=== PATIENT | female | born 1950 | race Caucasian/White ===

== ENCOUNTER 2016-12-05 08:43 | Emergency (ER) | payer MEDICARE, BC ==
[2016-12-05 09:45] VITALS: BP 133/67
[2016-12-05] MEDS ORDERED: DOXYcycline CAP(*) 100 MG PO ONE (10:16)
--- NOTE | 2016-12-05 10:37 | UC ---
Skin Complaint HPI - HPI Summary HPI Summary: Patient presents s/p tick bite that she removed prior to arrival. She feels the tick was present less than 24 hours, and it was not engorged with blood. She reports localized tenderness of the - History of Current Complaint Chief Complaint: UCSkin Time Seen by Provider: 12/05/16 10:08 Stated Complaint: TICK BITE Hx Obtained From: Patient Onset/Duration: Sudden Onset, Lasting Hours Skin Exposure Onset/Duration: Hours Ago Timing: Constant Onset Severity: Mild Current Severity: Mild Location: Discrete - under left breast Aggravating Factor(s): Nothing, Touch Alleviating Factor(s): Nothing Associated Signs & Symptoms: Positive: Negative Related History: Insect Bite/Sting - Allergy/Home Medications Allergies/Adverse Reactions: Allergies Allergy/AdvReac Type Severity Reaction Status Date / Time Nitrofurantoin Allergy Tachycardia Verified 12/05/16 09:38 [From Macrobid] Home Medications: Home Medications Aspirin [Aspirin 81 MG TAB] 1 tab PO DAILY 12/05/16 [History Confirmed 12/05/16] Digoxin TAB* [Lanoxin TAB*] 1 tab PO DAILY 12/05/16 [History Confirmed 12/05/16] Review of Systems Constitutional: Negative Skin: Other - small red area at location of the tick bite Eyes: Negative ENT: Negative Respiratory: Negative Cardiovascular: Negative Gastrointestinal: Negative Genitourinary: Negative Motor: Negative Neurovascular: Negative Musculoskeletal: Negative Neurological: Negative Psychological: Negative All Other Systems Reviewed And Are Negative: Yes PMH/Surg Hx/FS Hx/Imm Hx Previously Healthy: Yes - Surgical History Surgical History: Yes Surgery Procedure, Year, and Place: x 3. tonsils - Family History Known Family History: Positive: None - Social History Occupation: Employed Full-time Lives: Alone Alcohol Use: Weekly Substance Use Type: None Smoking Status (MU): Former Smoker When Did the Patient Quit Smoking/Using Tobacco: 8-10 years ago - Immunization History Most Recent Influenza Vaccination: 5 ft 4 in Most Recent Tetanus Shot: 128 lbs Physical Exam Triage Information Reviewed: Yes Appearance: Well-Appearing Vital Signs: Initial Vital Signs Temp 98.4 F 12/05/16 09:39 Pulse 50 12/05/16 09:39 Resp 16 12/05/16 09:39 BP 133/67 12/05/16 09:39 Pulse Ox 100 12/05/16 09:39 Vital Signs Reviewed: Yes Eye Exam: Normal ENT Exam: Normal Dental Exam: Normal Neck exam: Normal Neck: Positive: 1 Respiratory Exam: Normal Cardiovascular Exam: Normal Abdominal Exam: Normal Musculoskeletal Exam: Normal Neurological Exam: Normal Skin Exam: Other - 1 cm circular area under right breat, without erythma migrans. Course/Dx - Course Course Of Treatment: Patient presents s/p tick bite with no evidence of lymes disease based on cc/hpi and clinical findings. She did have a localized reacation at the site, and was treated prophylaxically with doxy 200 mg x 1 dose. I did discuss with her that if she develop at fever, sweats, joint pain or rashes to seek immediate medical assistance. - Differential Diagnoses - Skin Complaint Differential Diagnoses: Other - tick bite - Diagnoses Provider Diagnoses: tick bite Discharge - Discharge Plan Condition: Stable Disposition: HOME Patient Education Materials: Tick Bite (ED) Referrals: Sanjay CERVANTES,Dony Nuñez [Primary Care Provider] - Additional Instructions: If you develop rashes, joit pain, fever or sweats please seek immediate medical attention.
== END 2016-12-05 10:33 | disposition home or self-care (01) ==
LOC: UCEAST 08:43
DX: T14.8XXA Other injury of unspecified body region, initial encounter (principal); W57.XXXA Bitten or stung by nonvenomous insect and other nonvenomous arthropods, initial encounter; Y92.9 Unspecified place or not applicable; Z87.891 Personal history of nicotine dependence
CPT/HCPCS: 99202; A9270-GY; G0463

== ENCOUNTER 2018-06-12 10:39 | Emergency (ER) | payer MEDICARE ==
[2018-06-12 10:54] VITALS: BP 114/65
--- NOTE | 2018-06-12 10:56 | UC ---
Lower Extremity/Ankle HPI - HPI Summary HPI Summary: 67 yo female presents with LEFT ankle pain. She tells me that last night she accidentally hit her left ankle with the car door and has had pain ever since. Pain is worse with weight bearing and with inversion/eversion. She applied some ice and elevated and felt better. Has not taken anything OTC for her symptoms. - History of Current Complaint Chief Complaint: UCLowerExtremity Stated Complaint: ANKLE INJURY Time Seen by Provider: 06/12/18 10:56 Hx Obtained From: Patient Onset/Duration: Sudden Onset Severity Initially: Moderate Severity Currently: Moderate Pain Intensity: 7 Pain Scale Used: 0-10 Numeric Aggravating Factor(s): Standing, Ambulation Alleviating Factor(s): Rest, Elevation - Allergies/Home Medications Allergies/Adverse Reactions: Allergies Allergy/AdvReac Type Severity Reaction Status Date / Time nitrofurantoin Allergy Tachycardia Verified 06/12/18 10:55 [From Macrobid] PMH/Surg Hx/FS Hx/Imm Hx Cardiovascular History: Cardiac Disease - Surgical History Surgical History: Yes Surgery Procedure, Year, and Place: x 3. tonsils - Family History Known Family History: Positive: None - Social History Lives: With Family Alcohol Use: Occasionally Substance Use Type: None Smoking Status (MU): Former Smoker When Did the Patient Quit Smoking/Using Tobacco: 8-10 years ago - Immunization History Most Recent Influenza Vaccination: 5 ft 4 in Most Recent Tetanus Shot: 128 lbs Review of Systems All Other Systems Reviewed And Are Negative: Yes Constitutional: Positive: Negative Skin: Positive: Negative Respiratory: Positive: Negative Cardiovascular: Positive: Negative Neurovascular: Positive: Negative Musculoskeletal: Positive: Other: - Left ankle pain Neurological: Positive: Negative Psychological: Positive: Negative Physical Exam - Summary Physical Exam Summary: GENERAL: NAD. WDWN. No pain distress. SKIN: No rashes, sores, lesions, or open wounds. CHEST: No accessory muscle use. Breathing comfortably and in no distress. CV: Pulses intact PT and DP. Cap refill <2seconds MSK: LEFT ANKLE: Mild TTP at medial malleolus with pain during inversion and eversion, but not dorsiflexion or plantar flexion. Strength 5/5. No edema or obvious bony deformities. No ecchymosis. Negative talar tilt. No increased laxity. NEURO: Alert. Sensations intact and symmetric B/L LEs PSYCH: Age appropriate behavior. Triage Information Reviewed: Yes Vital Signs: Initial Vital Signs Temp 98.2 F 06/12/18 10:50 Pulse 63 06/12/18 10:50 Resp 18 06/12/18 10:50 BP 114/65 06/12/18 10:50 Pulse Ox 98 06/12/18 10:50 Vital Signs Reviewed: Yes Lower Extremity Course/Dx - Course Course Of Treatment: XR: IMPRESSION: Soft tissue swelling without evidence of fracture. Suspect ankle contusion Pt was placed in an GISELA wrap, gel ankle splint and advised to RICE and use the crutches that she has at home. F/u with [facility] if symptoms persist. - Differential Dx/Diagnosis Provider Diagnosis: Ankle contusion Discharge - Sign-Out/Discharge Documenting (check all that apply): Patient Departure All imaging exams completed and their final reports reviewed: Yes - Discharge Plan Condition: Stable Disposition: HOME Patient Education Materials: Contusion in Adults (ED) Referrals: Sanjay CERVANTES,Dony Nuñez [Primary Care Provider] - [facility] [Provider Group] - If Needed Additional Instructions: If you develop a fever, shortness of breath, chest pain, new or worsening symptoms - please call your PCP or go to the ED. 1) Your ankle X-Ray was normal today. 2) Please rest, ice, and elevate your ankle as much as possible. 3) Use the gel ankle splint and crutches for support and pain relief 4) If your symptoms do not improve in 5-7 days, please call [facility] at the number below to schedule an appointment for a recheck - Billing Disposition and Condition Condition: STABLE Disposition: Home
== END 2018-06-12 11:40 | disposition home or self-care (01) ==
LOC: UCEAST 10:39
DX: S90.02XA Contusion of left ankle, initial encounter (principal); W22.8XXA Striking against or struck by other objects, initial encounter; Y92.810 Car as the place of occurrence of the external cause; I51.9 Heart disease, unspecified; Z88.1 Allergy status to other antibiotic agents; Z87.891 Personal history of nicotine dependence
CPT/HCPCS: 99212; G0463

== ENCOUNTER 2018-10-31 06:27 | Day surgery (SDC) | payer MEDICARE ==
[2018-10-31] MEDS ORDERED: Midazolam* 1 MG/ML 2 ML VIAL (2 MG) ONE (07:45)
[2018-10-31 08:57] VITALS: BP 123/72
--- NOTE | 2018-10-31 09:02 | OP ---
DATE OF OPERATION: 10/31/18 [facility] DATE OF : 52 SURGEON: Yvon Casarez M.D. PREOPERATIVE DIAGNOSIS: Cataract, left. POSTOPERATIVE DIAGNOSIS: Cataract, left. OPERATIVE PROCEDURE: Extracapsular cataract extraction with IOL, intraocular lens implant left eye. DESCRIPTION OF PROCEDURE: The patient was brought to the operating room after being given 1/2% Alcaine with epinephrine drops in the preoperative area. The eye was prepped and draped in the usual sterile fashion. Sterile drape and eyelid speculum were placed. Again, topical 1/2% Alcaine with epinephrine was given. A paracentesis incision was made at the 3 o'clock position with the No.75 blade. Clear cornea incision 2.2 x 2.2-mm was created at the 6 o'clock position starting at the anterior limbus using the 2.2-mm keratome. The anterior chamber was irrigated with 0.4 mL of 1% non-preservative intracameral lidocaine and filled with DisCoVisc. A capsulorrhexis was completed using the cystotome and the Utrata forceps. Hydrodissection was performed with balanced salt solution. The lens nucleus was removed with the Phacoemulsification handpiece without incident. Cortex was removed with the irrigation-aspiration handpiece. The capsular bag was re-inflated using DisCoVisc and an [id number] implant was inserted with the shooter. The irrigation-aspiration handpiece was used to remove all residual DisCoVisc. The eye was refilled with balanced salt solution and the wound checked and found to be watertight. Topical Maxitrol drops were given. [id number]/[facility] #: [id number] [facility] [place] [facility]
[2018-10-31] MEDS ORDERED: Proparacaine 0.5% OPHTH.SOL* 15 ML BTL ONE (12:21)
[2018-10-31] MEDS ORDERED: Lidocaine 2% w/ EPI 1:200,000* 20 ML SDV VIAL ONE (12:21)
[2018-10-31] MEDS ORDERED: Lidocaine 1% MPF ** 5 ML VIAL ONE (12:21)
[2018-10-31] MEDS ORDERED: Cyclopentolate 1% OPTH.SOL* 2 ML BTL ONE (12:21)
[2018-10-31] MEDS ORDERED: Neomycin/Polymy/Dex OPTH.SUSP* MAXITROL 0.1% 5 ML ONE (12:21)
[2018-10-31] MEDS ORDERED: acetaZOLAMIDE TAB* 250 MG ONE (12:21)
[2018-10-31] MEDS ORDERED: Povidone Iodine 5% OPTH* 30 ML BTL ONE (12:21)
[2018-10-31] MEDS ORDERED: Ketorolac 0.5% OPHTH (NF) 0.5 % 5 ML BTL ONE (12:21)
[2018-10-31] MEDS ORDERED: Phenylephrine OPHTH SOL 2.5%* 2 ML ONE (12:21)
== END 2018-10-31 09:57 | disposition home or self-care (01) ==
LOC: OREAST 06:27
PROVIDERS: ATTEND Specialist
DX: H25.812 Combined forms of age-related cataract, left eye (principal); I48.91 Unspecified atrial fibrillation; Z87.891 Personal history of nicotine dependence; K21.9 Gastro-esophageal reflux disease without esophagitis
CPT/HCPCS: A9270-GY; J2250; V2632

== ENCOUNTER → 2018-11-07 | Day surgery (SDC) | payer MEDICARE ==
[~2018-11-07] MED LIST: Buffered Lidocaine 1% SYRIN* 1 ML/SYRINGE INTRADERM ONE; Cyclopentolate 1% OPTH.SOL* 2 ML BTL ONE; Ketorolac 0.5% OPHTH (NF) 0.5 % 5 ML BTL ONE; Lidocaine 1% MPF ** 5 ML VIAL ONE; Lidocaine 2% w/ EPI 1:200,000* 20 ML SDV VIAL ONE; Midazolam* 1 MG/ML 2 ML VIAL (2 MG) ONE; Neomycin/Polymy/Dex OPTH.SUSP* MAXITROL 0.1% 5 ML ONE; Phenylephrine OPHTH SOL 2.5%* 2 ML ONE; Povidone Iodine 5% OPTH* 30 ML BTL ONE; Proparacaine 0.5% OPHTH.SOL* 15 ML BTL ONE; acetaZOLAMIDE TAB* 250 MG ONE
[2018-11-07 11:15] VITALS: BP 120/65
--- NOTE | 2018-11-07 14:06 | OP ---
OPERATIVE NOTE: DATE OF OPERATION: 11/07/18 DATE OF : 52 SURGEON: Yvon Casarez M.D. PREOPERATIVE DIAGNOSIS: Cataract, right eye. POSTOPERATIVE DIAGNOSIS: Cataract, right eye. OPERATIVE PROCEDURE: Extracapsular cataract extraction with intraocular lens implant, right eye. PROCEDURE: The patient was brought to the operating room after being given 1/2% Alcaine with epineph rine drops in the preoperative area. The eye was prepped and draped in the usual sterile fashion. S terile drape and eyelid speculum were placed. Again, topical 1/2% Alcaine with epinephrine was given . A paracentesis incision was made at the 9 o'clock position with the No.75 blade. Clear cornea inc ision 2.2 x 2.2-mm was created at the 12 o'clock position starting at the anterior limbus using the 2 .2-mm keratome. The anterior chamber was irrigated with 0.4 mL of 1% non-preservative intracameral l idocaine and filled with DisCoVisc. A capsulorrhexis was completed using the cystotome and the Utrat a forceps. Hydrodissection was performed with balanced salt solution. The lens nucleus was removed w ith the Phacoemulsification handpiece without incident. Cortex was removed with the irrigation-aspir ation handpiece. The capsular bag was re-inflated using DisCoVisc and an SN60WF 18.5 implant was ins erted with the shooter. The irrigation-aspiration handpiece was used to remove all residual DisCoVis c. The eye was refilled with balanced salt solution and the wound checked and found to be watertight . Topical Maxitrol drops were given. [id number]/[facility] #: [id number]
== END | disposition home or self-care (01) ==
LOC: OREAST 08:15
PROVIDERS: ATTEND Specialist
DX: H25.811 Combined forms of age-related cataract, right eye (principal); H43.813 Vitreous degeneration, bilateral; Z87.891 Personal history of nicotine dependence; I48.91 Unspecified atrial fibrillation; K21.9 Gastro-esophageal reflux disease without esophagitis
CPT/HCPCS: A9270-GY; J2250; V2632

== ENCOUNTER 2019-06-19 09:07 | Emergency (ER) | payer MEDICARE ==
[2019-06-19 10:00] VITALS: BP 140/66
== END 2019-06-19 11:22 | disposition home or self-care (01) ==
LOC: UCEAST 09:07